=== PATIENT | male | born 1950 | race Caucasian/White ===

== ENCOUNTER → 2021-09-27 | Outpatient (RCR) | payer MEDICARE, BC | LOC: PT 09-08 07:16 | PROVIDERS: ATTEND Specialist | DX: S39.012D Strain of muscle, fascia and tendon of lower back, subsequent encounter (principal); M62.81 Muscle weakness (generalized) ==

== ENCOUNTER 2021-09-30 06:35 | Outpatient (RCR) | payer MEDICARE, BC | END 2021-10-27 | LOC: PT 06:35 | PROVIDERS: ATTEND Specialist | DX: S39.012D Strain of muscle, fascia and tendon of lower back, subsequent encounter (principal); M62.81 Muscle weakness (generalized) | CPT/HCPCS: 97139 ==